=== PATIENT | female | born 1990 | race Caucasian/White ===

== ENCOUNTER 2022-04-30 10:59 | Emergency (ER) | payer OTHER ==
[2022-04-30] MEDS ORDERED: NORCO 5-325 TA1 EACH PO (12:34)
[2022-04-30] MEDS ORDERED: AUGMENTIN 500-1 EACH PO (12:34)
== END 2022-04-30 12:47 | disposition home or self-care (01) ==
LOC: FER 10:59
DX: O9A.23 Injury, poisoning and certain other consequences of external causes complicating the puerperium (principal); O99.73 Diseases of the skin and subcutaneous tissue complicating the puerperium; S31.41XA Laceration without foreign body of vagina and vulva, initial encounter; L08.9 Local infection of the skin and subcutaneous tissue, unspecified
CPT/HCPCS: 99283